=== PATIENT | male | born 1985 | race African-American/Black ===

== ENCOUNTER 2020-11-08 15:41 | Emergency (ER) | payer SELFPAY ==
[2020-11-08 15:56] VITALS: BMI 28.8
[2020-11-08] MEDS ORDERED: SODIUM CHLORIDE 0.9% 500 ML INFUS.BAG IV ONE (16:42)
[2020-11-08] MEDS ORDERED: KETOROLAC TROMETHAMINE 30 MG/1 ML VIAL IVPUSH ONE (16:42)
[2020-11-08] MEDS ORDERED: ONDANSETRON 4 MG/2 ML VIAL IVPUSH ONE (16:43)
[2020-11-08 19:10] LABS: EOS % 0.1 % (0-4.5); HEMATOCRIT 44.7 % (35.4-49); HEMOGLOBIN 14.4 GM/dL (11.7-16.9); LYMPH % 44.6 % (8-40); MCH 23.8 pg (25.7-33.7); MCHC 32.3 g/dl (32.0-35.9); MEAN CELL VOLUME 73.6 fl (80-96); MEAN PLT VOLUME 9.3 fl (7.5-11.1); MONO % 19.6 % (3.8-10.2); NEUT % 34.7 % (42.8-82.8); PLATELET COUNT 157 10^3/uL (134-434); RBC 6.07 M/mm3 (4.00-5.60); RDW 14.6 % (11.9-15.9); WHITE BLOOD COUNT 2.6 K/mm3 (4.0-10.0)
[2020-11-08 19:26] LABS: CALCIUM 8.6 mg/dL (8.5-10.1)
[2020-11-08 19:27] LABS: ALBUMIN 3.9 g/dl (3.4-5.0); BLOOD UREA NITROGEN 16.8 mg/dL (7-18)
[2020-11-08 19:29] LABS: CREATININE 1.1 mg/dL (0.55-1.3)
[2020-11-08 19:31] LABS: BILIRUBIN,TOTAL 0.3 mg/dL (0.2-1); TOT PROT 7.4 g/dl (6.4-8.2)
[2020-11-08 19:37] VITALS: BP 107/67; PULSE 64; TEMP 99.4
== END 2020-11-08 20:29 | disposition home or self-care (01) ==
LOC: JER 15:41
PROC: 3E0333Z Introduction of Anti-inflammatory into Peripheral Vein, Percutaneous Approach (ICD-10-PCS; principal; 2020-11-08)
PROC: 3E033GC Introduction of Other Therapeutic Substance into Peripheral Vein, Percutaneous Approach (ICD-10-PCS; 2020-11-08)
DX: U07.1 COVID-19 (principal)
CPT/HCPCS: 36415; 80053; 85025; 99284-25; C9803; U0003; U0005